=== PATIENT | female | born 1945 | race Caucasian/White ===

== ENCOUNTER 2023-10-26 10:42 | Inpatient (IN) | payer OTHER ==
[~2023-10-26] VITALS: Ht 165.1 cm; Wt 49.0 kg
[2023-10-26] MEDS ORDERED: SYNTHROID88 MCG (10:47)
[2023-10-26] MEDS ORDERED: SYMBICORT 16010.2 GM (10:48)
[2023-10-26] MEDS ORDERED: CORGARD20 M1 (10:48)
[2023-10-26] MEDS ORDERED: EVISTA60 MG (10:48)
[2023-10-26] MEDS ORDERED: FLONASE16 GM (10:48)
[2023-10-26] MEDS ORDERED: XARELTO10 MG (10:48)
[2023-10-26] MEDS ORDERED: DEXILANT60 MG (10:48)
[2023-10-26] MEDS ORDERED: MIRALAX510 GM (10:49)
[2023-10-26 12:51] LABS: HEMATOCRIT 31.7 % (36.0-45.00); HEMOGLOBIN 10.7 g/dL (12.0-15.00); MEAN CELL VOLUME 94.7 fL (80.00-100.00); MEAN CORPUSCULAR HEMOGLOBIN 31.9 pg (27.00-32.0); MEAN CORPUSCULAR HGB CONC 33.7 g/dl (32.0-36.0); PLATELET COUNT 180 K/uL (150-450); RED BLOOD COUNT 3.35 M/uL (4.00-6.00); RED CELL DISTRIBUTION WIDTH 14.6 % (11.5-14.5)
[2023-10-26 13:21] LABS: INR 1.22; PARTIAL THROMBOPLASTIN TIME 33.1 SECONDS (22.0-34.0); PROTHROMBIN TIME 12.6 SECONDS (9.0-11.5)
[2023-10-26 13:36] LABS: BILIRUBIN TOTAL 1.44 mg/dL (0.3-1.2); BILIRUBIN,CONJUGATED 0.58 mg/dL (0.0-0.2); BILIRUBIN,UNCONJUGATED 0.86 mg/dL (0.0-0.6); CALCIUM 8.7 mg/dL (8.5-10.1); CREATININE SERUM 0.79 mg/dL (0.55-1.02); GFR 70.76; POTASSIUM 3.63 mEq/L (3.5-5.1); TOTAL PROTEIN 5.8 gm/dL (6.4-8.2)
[2023-10-26 15:02] LABS: PH,URINE 5.5 (5.0-8.0); URINE APPEARANCE Clear; URINE BILIRRUBIN Small (NEGATIVE); URINE BLOOD Negative; URINE COLOR Dark Yellow; URINE GLUCOSE Negative (NEGATIVE); URINE LEUKOCYTE Trace; URINE NITRATE Negative; URINE PROTEIN Negative (NEGATIVE)
[2023-10-26 15:05] LABS: URINE BACTERIA 46.6 uL (0.0-1933); URINE EPITHELIAL CELLS 19.9 uL (0.0-38.8); URINE RBC 7.7 uL (0.0-20.8); URINE WBC 11.9 uL (0.0-23.2)
[2023-10-26] MEDS ORDERED: IPRATROPIUM BROMIDE 0.5 MG/2.5 ML AMPUL.NEB IH SCH (18:43)
[2023-10-26] MEDS ORDERED: FUROsemide 20 MG/2 ML VIAL IV SCH (18:47)
[2023-10-26] MEDS ORDERED: PANTOPRAZOLE SODIUM 40 MG/VIAL VIAL IV SCH (18:47)
[2023-10-26] MEDS ORDERED: CEFTRIAXONE SODIUM 2,000 MG in 0.9 % SODIUM CHLORIDE 100 ML IV SCH (18:50)
[2023-10-26] MEDS ORDERED: ONDANSETRON HCL 4 MG in 0.9 % SODIUM CHLORIDE 50 ML IV PRN (19:00)
[2023-10-26] MEDS ORDERED: ALBUMIN HUMAN-25 0.25GM/ML (50ML) VIAL IV SCH (19:00)
[2023-10-27] MEDS ORDERED: LEVOTHYROXINE SODIUM 88 MCG TABLET PO SCH (06:00)
[2023-10-27] MEDS ORDERED: SPIRONOLACTONE 50 MG TABLET PO SCH (09:00)
[2023-10-27] MEDS ORDERED: AMINO ACIDS/PROTEIN HYDROLYS 30 ML BLIST.PACK PO SCH (09:00)
[2023-10-27] MEDS ORDERED: ALBUMIN HUMAN-25 0.25GM/ML (50ML) VIAL IV SCH (10:00)
[2023-10-29 06:55] LABS: HEMATOCRIT 28.8 % (36.0-45.00); HEMOGLOBIN 9.9 g/dL (12.0-15.00); MEAN CELL VOLUME 93.4 fL (80.00-100.00); MEAN CORPUSCULAR HGB CONC 34.2 g/dl (32.0-36.0); PLATELET COUNT 153 K/uL (150-450); RED BLOOD COUNT 3.08 M/uL (4.00-6.00); RED CELL DISTRIBUTION WIDTH 14.6 % (11.5-14.5)
[2023-10-29 07:08] LABS: ALBUMIN 2.4 gm/dL (3.4-5.0); BILIRUBIN TOTAL 0.82 mg/dL (0.3-1.2); CALCIUM 8.8 mg/dL (8.5-10.1); CREATININE SERUM 0.6 mg/dL (0.55-1.02); GFR 97.2; GLOBULINA 2.6 G/DL (2.4-3.5); POTASSIUM 4.08 mEq/L (3.5-5.1)
[2023-10-30] MEDS ORDERED: PANTOPRAZOLE SODIUM 40 MG TABLET.DR PO SCH (09:00)
== END 2023-10-29 13:19 | disposition home or self-care (01) | DRG 442 ==
LOC: ER 10:42 → MEDI 19:16 → SEC-K 19:16 → MEDI 19:44
PROVIDERS: General Practice; ADMIT Internal Medicine; ATTEND Internal Medicine
PROC: BW21ZZZ Computerized Tomography (CT Scan) of Abdomen and Pelvis (ICD-10-PCS; 2023-10-26)
PROC: 0W9G3ZZ Drainage of Peritoneal Cavity, Percutaneous Approach (ICD-10-PCS; principal; 2023-10-28)
DX: K72.10 Chronic hepatic failure without coma (principal); R18.8 Other ascites; K74.60 Unspecified cirrhosis of liver; Z20.822 Contact with and (suspected) exposure to COVID-19; I10 Essential (primary) hypertension; E03.9 Hypothyroidism, unspecified